=== PATIENT | female | born 1975 | race American Indian/Alaskan Native ===

== ENCOUNTER 2017-09-07 09:35 | Emergency (ER) | payer MEDICAID ==
--- NOTE | 2017-09-07 12:34 | XRay Report ---
LEFT FOOT, 3 views: History: Left foot pain. The bony architecture is intact. Bony alignment is normal. No soft tissue abnormalities are seen. The joint spaces appear preserved. IMPRESSION: Normal left foot.
--- NOTE | 2017-09-07 12:35 | Emergency Department Report ---
ED Lower Extremity HPI - General Chief Complaint: Extremity Injury, Lower Stated Complaint: LEFT FOOT INJURY Time Seen by Provider: 09/07/17 12:28 Source: patient Mode of arrival: Ambulatory Limitations: No Limitations - History of Present Illness Initial Comments: 42 yo female presents with left foot/big toe pain. This morning she dropped a weight on her foot while working out at the gym. No laceration. Mild to moderate pain especially to touch MD Complaint: foot injury -: Gradual - Related Data Home Medications Medication Instructions Recorded Confirmed Last Taken No Known Home Medications [No 05/08/17 05/08/17 Unknown Reported Home Medications] Allergies Allergy/AdvReac Type Severity Reaction Status Date / Time doxycycline calcium Allergy Severe Anaphylaxis Verified 05/08/17 11:42 [From Vibramycin] doxycycline hyclate Allergy Severe Anaphylaxis Verified 05/08/17 11:42 [From Vibramycin] doxycycline monohydrate Allergy Severe Anaphylaxis Verified 05/08/17 11:42 [From Vibramycin] amoxicillin Allergy Intermediate Itching Verified 05/08/17 11:42 ED Review of Systems ROS: Stated complaint: LEFT FOOT INJURY Other details as noted in HPI ED Past Medical Hx - Past Medical History Hx Arthritis: Yes (shoulders and neck) Hx HIV: No - Surgical History Hx Breast Surgery: Yes (reduction) - Social History Smoking Status: Never Smoker Substance Use Type: None - Medications Home Medications: Home Medications Medication Instructions Recorded Confirmed Last Taken Type No Known Home Medications [No 05/08/17 05/08/17 Unknown History Reported Home Medications] ED Physical Exam - General Limitations: No Limitations General appearance: alert, in no apparent distress - Extremities Exam Extremities exam: Present: other (left foot: No ecchymoses, no edema + tenderness at the MTP no laceration) ED Course Vital Signs 09/07/17 10:07 Temperature 97.9 F Pulse Rate 97 H Respiratory 18 Rate Blood Pressure 137/89 O2 Sat by Pulse 99 Oximetry ED Lower Extremity MDM - Medical Decision Making I reviewed the radiographs. No fracture no dislocation no soft tissue swelling. Recommended hard shoe. I recommended Tylenol As needed for pain. She has allergic to ibuprofen. I recommended ice. Diagnosis foot contusion Critical care attestation.: If time is entered above; I have spent that time in minutes in the direct care of this critically ill patient, excluding procedure time. ED Disposition Clinical Impression: Contusion of foot, left Disposition: DC-01 TO HOME OR SELFCARE Is pt being admited?: No Does the pt Need Aspirin: No Condition: Stable Instructions: Foot Contusion (ED) Referrals: PRIMARY CARE,MD [Primary Care Provider] - as needed Time of Disposition: 12:35
[2017-09-07 12:51] VITALS: BP 130/80
== END 2017-09-07 12:50 | disposition home or self-care (01) ==
LOC: ED 09:35
DX: S90.32XA Contusion of left foot, initial encounter (principal); W20.8XXA Other cause of strike by thrown, projected or falling object, initial encounter; Y93.89 Activity, other specified; Y92.89 Other specified places as the place of occurrence of the external cause; Y99.8 Other external cause status